=== PATIENT | female | born 1960 | race Asian ===

== ENCOUNTER 2017-08-25 15:07 | Inpatient (IN) | payer SELFPAY ==
[~2017-08-25] VITALS: Ht 167.6 cm; Wt 79.0 kg
[2017-08-25 15:26] LABS: BASOPHIL COUNT 0.1 K/uL (0-0.1); EOSINOPHIL (%) 0.6 % (0-5); EOSINOPHIL COUNT 0.1 K/uL (0-0.3); HEMATOCRIT 37.7 % (36.0-46.0); IMMATURE GRANULOCYTE (%) 0.4 % (0.0-0.7); INSTRUMENT ABS NEUTROPHIL CT 3.8 K/uL; LYMPHOCYTE COUNT 4.9 K/uL (1.0-2.8); MCH 28.3 PG (29.0-34.0); MCHC 33.4 G/DL (30.0-36.0); MCV 84.5 FL (83-99); MEAN PLAT.VOLUME 10.9 uM^3 (9.5-12.4); MONOCYTE COUNT 0.5 K/uL (0-0.8); NEUTROPHIL COUNT 3.8 K/uL (1.8-6.4); PLATELET COUNT 152 K/uL (156-360); RBC DIS.WIDTH-CV 11.9 % (11.8-14.6); RBC DIS.WIDTH-SD 36.3 % (39-53); RED BLOOD COUNT 4.46 M/uL (3.80-5.20); WHITE BLOOD COUNT 9.2 K/uL (4.1-10.2)
[2017-08-25 15:36] LABS: AMYLASE 67 IU/L (1-118); CHLORIDE 109 mEq/L (99-109); POTASSIUM 3.6 mEq/L (3.7-5.4); SODIUM 141 mEq/L (136-147)
[2017-08-25 15:38] LABS: GLUCOSE 117 mg/dL (70-99)
[2017-08-25 15:40] LABS: ANION GAP 9 MEQ/L (2-14)
[2017-08-25 15:41] LABS: SERUM ETHYL ALCOHOL < 10 mg/dL
[2017-08-25 15:43] LABS: UREA NITROGEN (BUN) 17 mg/dL (9-23)
[2017-08-25 15:45] LABS: LIPASE 36 U/L (1.0-51.0)
[2017-08-25 15:47] LABS: GFR ESTIMATE (CALCULATED) > 59 mL/min/
[2017-08-25 15:51] LABS: QUANTITATIVE HCG < 4.0 MIU/ML
[2017-08-25] MEDS ORDERED: HYPERTENSION MED (16:22)
[2017-08-25 18:15] VITALS: BP 133/78
[2017-08-25 18:37] VITALS: BP 134/80
[2017-08-25 18:52] LABS: ADD MIUA? YES; BILIRUBIN NEGATIVE; BLOOD MODERATE; COLOR STRAW ((YELLOW)); GLUCOSE (STRIP) NEGATIVE; KETONES NEGATIVE; LEUKOCYTES TRACE; NITRITE NEGATIVE; PROTEIN (STRIP) NEGATIVE; UROBILINOGEN 0.2 MG/DL (0.2-1.0)
[2017-08-25 18:55] LABS: SPECIFIC GRAVITY 1.061 (1.000-1.030)
[2017-08-25 19:13] LABS: AMPHETAMINE NEGATIVE (500 ng/mL); BARBITURATES NEGATIVE (200 ng/mL); BENZODIAZEPINES NEGATIVE (150 ng/mL); COCAINE NEGATIVE (150 ng/mL); INTERNAL CONTROLS VALID? YES; METHADONE NEGATIVE (200 ng/mL); METHAMPHETAMINE NEGATIVE (500 ng/mL); OPIATES (MORPHINE) NEGATIVE (100 ng/mL); OXYCODONE NEGATIVE (100 ng/mL); PHENCYCLIDINE NEGATIVE (25 ng/mL); PROPOXYPHENE NEGATIVE (300 ng/mL); THC CANNABINOIDS NEGATIVE (50 ng/mL); TRICYCLIC ANTIDEPRESSANTS NEGATIVE (300 ng/mL)
[2017-08-25 19:36] LABS: METH RESISTANT S AUREUS PCR NEGATIVE (NEGATIVE); PROBE CHECK PASS; SPECIMEN PROCESSING CONTROL PASS
[2017-08-25 19:58] LABS: BACTERIA NONE SEEN /HPF; EPITHELIAL CELLS RARE /HPF; MUCUS TRACE /LPF; UCUL ADDED? NO; WHITE BLOOD CELLS 0-5 /HPF (0-5)
[2017-08-25 20:00] VITALS: BP 117/61
[2017-08-26] VITALS: BP 104/64
[2017-08-26] MEDS ORDERED: ENALAPRIL MALEA10 MG PO (00:31)
[2017-08-26 04:00] VITALS: BP 120/68
[2017-08-26 04:44] LABS: MCH 28.1 PG (29.0-34.0); MCHC 33.8 G/DL (30.0-36.0); MCV 83.3 FL (83-99); MEAN PLAT.VOLUME 11.2 uM^3 (9.5-12.4); PLATELET COUNT 146 K/uL (156-360); RBC DIS.WIDTH-CV 11.9 % (11.8-14.6); RBC DIS.WIDTH-SD 35.6 % (39-53); RED BLOOD COUNT 3.84 M/uL (3.80-5.20); WHITE BLOOD COUNT 10.2 K/uL (4.1-10.2)
[2017-08-26 04:54] LABS: CHLORIDE 108 mEq/L (99-109); POTASSIUM 3.9 mEq/L (3.7-5.4); SODIUM 142 mEq/L (136-147)
[2017-08-26 04:56] LABS: GLUCOSE 101 mg/dL (70-99)
[2017-08-26 04:57] LABS: ANION GAP 9 MEQ/L (2-14)
[2017-08-26 04:58] LABS: TOTAL BILIRUBIN 0.9 mg/dL (0.0-1.0)
[2017-08-26 04:59] LABS: ALKALINE PHOSPHATASE 79 IU/L (3-129)
[2017-08-26 05:00] LABS: GFR ESTIMATE (CALCULATED) > 59 mL/min/
[2017-08-26 05:01] LABS: UREA NITROGEN (BUN) 14 mg/dL (9-23)
[2017-08-26 08:00] VITALS: BP 117/63
[2017-08-26 11:19] VITALS: BP 134/73
[2017-08-26 15:40] VITALS: BP 150/89
[2017-08-26 21:00] VITALS: BP 123/67
[2017-08-27 04:24] VITALS: BP 115/64
[2017-08-27 07:54] VITALS: BP 120/65
[2017-08-27] MEDS ORDERED: NORCO 5/3251 TABLET PO (09:09)
== END 2017-08-27 11:00 | disposition home or self-care (01) | DRG 87 ==
LOC: TRA 15:07 → EDBD 15:07 → 3EAST 16:51 → 4WEST 16:51 → EDOF 16:51 → ENRESERV 16:59 → CANRESERV 17:02 → ENRESERV 17:25 → 4WEST 17:56 → ENRESERV 08-26 09:43 → 3EAST 08-26 11:01
PROVIDERS: Emergency Medicine; Surgery
DX: S06.9X1A Unspecified intracranial injury with loss of consciousness of 30 minutes or less, initial encounter (principal); R40.2423 Glasgow coma scale score 9-12, at hospital admission; V03.10XA Pedestrian on foot injured in collision with car, pick-up truck or van in traffic accident, initial encounter; Y92.410 Unspecified street and highway as the place of occurrence of the external cause
CPT/HCPCS: 70450; 70486; 71260; 72125; 72129; 72132; 73552; 74177; 80048; 80053; 81003; 82150; 83690; 84702; 85025; 85027; 86850; 86900; 86901; 87641; 99281; 99285; G0480; J2405; J7120; S0028